=== PATIENT | female | born 1990 | race Hispanic/Latino ===

== ENCOUNTER → 2017-03-26 | Outpatient (CLI) | payer BC ==
[~2017-03-26] MED LIST: IBUP-1773 PO; Ibuprofen PO; NITR-65 PO; PREN1TAB39 PO
--- NOTE | 2017-03-26 15:02 | Diagnostic Imaging Report ---
PROCEDURE: US PELVIC (NON OB) TECHNIQUE: Multiple real-time grayscale images were obtained over the pelvis in various projections transabdominally. Indication: IUD surveillance, no complaint per patient. Comparison: None. Discussion: Transabdominal and transvaginal sonographic evaluation of the pelvis was performed. The uterus is normal in echotexture and size measuring 8.9 x 6.0 x 4.2 cm. IUD appears to be in good position within the endometrial canal. Normal endometrial thickness measuring 0.7 cm. The ovaries appear normal in echotexture and size bilaterally with normal color Doppler blood flow. The right ovary measures 2.5 x 2.7 x 2.1 cm. The left ovary measures 3.3 x 4.1 x 2.0 cm. No abnormal adnexal mass or fluid. Impression: 1. IUD in good position within the endometrial canal. Dictated by: Dictated on workstation # [id number]
== END ==
LOC: RAD 14:10
PROVIDERS: ATTEND Family Medicine
DX: Z30.431 Encounter for routine checking of intrauterine contraceptive device (principal)
CPT/HCPCS: 76856

== ENCOUNTER 2022-10-09 00:20 | Inpatient (IN) | payer BC, OTHER ==
[2022-10-09] VITALS (72 sets, daily range): BP systolic 101–146; BP diastolic 53–81
[~2022-10-09] VITALS: Ht 157.5 cm; Wt 100.9 kg
[2022-10-09] MEDS ORDERED: MINERAL OIL 30 ML UDC TOP PRN (00:30)
[2022-10-09] MEDS ORDERED: D5 LR IV SOLUTION 1,000 ML IV SCH (00:30)
[2022-10-09] MEDS ORDERED: PREN-8 PO (00:34)
[2022-10-09 01:25] LABS: BASOPHILS % (AUTO) 0 % (0-10); EOSINOPHILS # (AUTO) 0.1 10^3/uL (0.0-0.3); EOSINOPHILS % (AUTO) 1 % (0-10); HEMATOCRIT 39 % (35-52); HEMOGLOBIN 12.7 g/dL (11.5-16.0); LYMPHOCYTES # (AUTO) 2.3 10^3/uL (1.0-4.0); LYMPHOCYTES % (AUTO) 26 % (12-44); MEAN CORPUSCULAR HEMOGLOBIN 26 pg (25-34); MEAN CORPUSCULAR HGB CONC 33 g/dL (32-36); MEAN CORPUSCULAR VOLUME 80 fL (80-99); MEAN PLATELET VOLUME 10.2 fL (9.0-12.2); MONOCYTES # (AUTO) 0.6 10^3/uL (0.0-1.0); MONOCYTES % (AUTO) 7 % (0-12); NEUTROPHILS % (AUTO) 66 % (42-75); PLATELET COUNT 224 10^3/uL (130-400); WHITE BLOOD COUNT 9.1 10^3/uL (4.3-11.0)
[2022-10-09 02:20] LABS: BILIRUBIN,URINE NEGATIVE (NEGATIVE); CLARITY,URINE CLEAR; COLOR,URINE YELLOW; GLUCOSE, URINE (UA) NEGATIVE (NEGATIVE); KETONES,URINE 1+ (NEGATIVE); LEUKOCYTE ESTERASE ,URINE NEGATIVE (NEGATIVE); NITRITE,URINE NEGATIVE (NEGATIVE); PROTEIN,URINE NEGATIVE (NEGATIVE)
[2022-10-09 02:55] LABS: BACTERIA,URINE FEW /HPF; WBC,URINE RARE /HPF
[2022-10-09] MEDS ORDERED: LACTATED RINGERS 1,000 ML IV ONE ×5 (03:17→11:45)
[2022-10-09] MEDS: LACTATED RINGERS 1,000 ML IV SCH ×3 (03:19→20:05)
[2022-10-09] MEDS: OXYTOCIN PRE-MIX DRIP 500 ML IV SCH ×2 (05:24→15:30)
[2022-10-09] MEDS ORDERED: CATHETER FLUSH 10 ML SYR IV SCH ×2 (06:00→22:00)
--- NOTE | 2022-10-09 06:48 | History & Physical-OB/GYN ---
GERONIMO JEFFERSON 10/09/22 0648: OB - Chief Complaint & HPI Date/Time Date of Admission: Date of Admission: Oct 09, 2022 at 00:20 Date seen by a Provider: Oct 09, 2022 Time Seen by a Provider: 07:00 Chief Complaint/History OB-Reason for Admission/Chief: Induction of Labor Hx : 5 Hx Para: 3 Expected Date of Delivery: Oct 15, 2022 Gestational Age in Weeks: 39 Gestational Age in Days: 1 Indication for induction: medical complication (glucosuria) Allergies and Home Medications Allergies Coded Allergies: No Known Drug Allergies (Unverified , 12/15/10) Patient Home Medication List Vit W-Ca,Fe,FA(<1 mg) ( Formula) 28 Mg Iron-800 Mcg Tablet, 1 EACH PO DAILY, (Reported) Entered as Reported by: GERONIMO RUIZ on 10/09/22 003 Last Action: New Order Discontinued Medications Ibuprofen (Ibuprofen) 600 Mg Tablet, 600 MG PO Q6H PRN for PAIN Discontinued Reason: No Longer Taking Prescribed by: BHAIVN GUERRA on 08/17/16 08 Last Action: Discontinued OB - History Hx of Present Care: Yes Ultrasounds: Normal mid trimester US Obstetrical Complications: Other (Glucose in urine, failed 1hr GTT, passed 3hr GTT, fingerstick glucose WNL, weekly BPPs normal) Medical Complications: None Information Induced Hypertension: No Maternal Gestational Diabetes: No Hemorrhage: Yes Obstetrical History Hx : 5 Hx Para: 3 Hx # Term Pregnancies: 3 Number of Living Children: 3 Hx Termination: No Hx Total # of Abortions (Spona: 1 Hx Multiple Gestation: No Hx Ectopic : No Hx Stillbirth: Yes (@ 17 WEEKS) Hx Complication: Yes (ANEMIA, LOW AMNIOTIC FLUID (mild oligo; reassuring weekly BPP)) Hx Induced Hypertens: No Hx Maternal Gestational Diabet: No Hx Hemorrhage: Yes (small amount of retained membranes that required manual extraction) Delivery History Hx Dystocia: Yes (mild distocia, resolved with [place] manuever ) Hx Forceps Assisted Delivery: No Hx Vacuum Extraction Assisted: No Hx Placenta Abnormality: Yes (first delivery required manual extraction for retained membranes) Hx Distress: No Hx Large For Gestational Age I: Yes Hx Small for Gestational Age I: No Hx Section: No Hx Vaginal Delivery Post C-Sec: No Hx Blood Disorders: No Adverse Rxn to Tranfusion: No Patient Past Medical History PMH: Vitamin D deficiency Slow transit constipation Elevated cholesterol Social History/Family History Alcohol Use: Denies Use Recreational Drug Use: No Smoking Cessation: Never smoker Immunizations Influenza Vaccine Up-to-Date: No; Not Current First/Initial COVID19 Vaccine: 07/25/2021 Second COVID19 Vaccination: 08/18/2021 Hepatitis A: Yes Hepatitis B: Yes Tetanus Booster (TDap): Less than 5yrs Rubella: immune RPR/VDRL: Negative GBS Status: Negative HBsAG: Negative OB - Admission Exam Physical Exam Vitals: Vital Signs 10/09/22 10/09/22 05:03 06:25 Temp 36.2 Pulse 109 Resp 20 B/P (MAP) 112/74 (87) Pulse Ox 100 O2 Delivery Room Air Heart: Rhythm Normal Lungs: Clear Abdomen: Gravid Extremities: Normal Cervical Dilatation: 3cm Effacement: 50% Membranes: Intact Heart Rate: 120's Accelerations: Accelerations Present Decelerations: No Decelerations Short Term Variability: Present Credit Department Manager Variability: Average (6-25) Contractions on Admission: >10 Minutes Apart Frequency of Contractions: 1-2/10 minutes Labs Laboratory Tests Test 10/08/22 20:15 10/09/22 01:00 Range/Units Urine Color YELLOW Urine Clarity CLEAR Urine pH 6.0 5-9 Urine Specific [place] 1.010 L 1.016-1.022 Urine Protein NEGATIVE NEGATIVE Urine Glucose (UA) NEGATIVE NEGATIVE Urine Ketones 1+ H NEGATIVE Urine Nitrite NEGATIVE NEGATIVE Urine Bilirubin NEGATIVE NEGATIVE Urine Urobilinogen 0.2 < = 1.0 MG/DL Urine Leukocyte Esterase NEGATIVE NEGATIVE Urine RBC (Auto) NEGATIVE NEGATIVE Urine RBC NONE /HPF Urine WBC RARE /HPF Urine Squamous Epithelial Cells 2-5 /HPF Urine Crystals NONE /LPF Urine Bacteria FEW H /HPF Urine Casts NONE /LPF Urine Mucus NEGATIVE /LPF Urine Culture Indicated NO White Blood Count 9.1 4.3-11.0 10^3/uL Red Blood Count 4.82 3.80-5.11 10^6/uL Hemoglobin 12.7 11.5-16.0 g/dL Hematocrit 39 35-52 % Mean Corpuscular Volume 80 80-99 fL Mean Corpuscular Hemoglobin 26 25-34 pg Mean Corpuscular Hemoglobin Concent 33 32-36 g/dL Red Cell Distribution Width 13.9 10.0-14.5 % Platelet Count 224 130-400 10^3/uL Mean Platelet Volume 10.2 9.0-12.2 fL Immature Granulocyte % (Auto) 1 % Neutrophils (%) (Auto) 66 42-75 % Lymphocytes (%) (Auto) 26 12-44 % Monocytes (%) (Auto) 7 0-12 % Eosinophils (%) (Auto) 1 0-10 % Basophils (%) (Auto) 0 0-10 % Neutrophils # (Auto) 6.0 1.8-7.8 10^3/uL Lymphocytes # (Auto) 2.3 1.0-4.0 10^3/uL Monocytes # (Auto) 0.6 0.0-1.0 10^3/uL Eosinophils # (Auto) 0.1 0.0-0.3 10^3/uL Basophils # (Auto) 0.0 0.0-0.1 10^3/uL Immature Granulocyte # (Auto) 0.1 0.0-0.1 10^3/uL OB - Assessment/Plan/Diagnosis Assessment Assessment: induction of labor Admission Dx Contractions Admission Status: Inpatient Order (span 2 midnights) Reason for Inpatient Admission: Patient scheduled for induction this morning. Came in last night with contractions. Plan Plan: Induction Induction Method: per Pitocin Protocol Problems: (1) Encounter for induction of labor Assessment & Plan: Continuous monitoring in place. Pitocin started this morning. Patient not interested in epidural at this time. BHAVIN GUERRA MD 10/09/22 1614: Allergies and Home Medications Allergies Coded Allergies: No Known Drug Allergies (Unverified , 12/15/10) Patient Home Medication List Home Medication List Reviewed: Yes Vit W-Ca,Fe,FA(<1 mg) ( Formula) 28 Mg Iron-800 Mcg Tablet, 1 EACH PO DAILY, (Reported) Entered as Reported by: GERONIMO RUIZ on 10/09/22 0034 Last Action: New Order Discontinued Medications Ibuprofen (Ibuprofen) 600 Mg Tablet, 600 MG PO Q6H PRN for PAIN Discontinued Reason: No Longer Taking Prescribed by: BHAVIN GUERRA on 08/17/16 0818 Last Action: Discontinued Supervisory-Addendum Brief Verification & Attestation Participated in pt care: history, MDM, physical Personally performed: exam, history, MDM, supervision of care Care discussed with: Medical Student Procedures: n/a I personally saw and examined patient and did my own history which confirmed that documented by the medical student. I directed the plan of care as documented. GERONIMO JEFFERSON Oct 09, 2022 06:48 BHAVIN GUERRA MD Oct 09, 2022 16:14
[2022-10-09] MEDS ORDERED: FLU QUAD HIGH DOSE 240 MCG/0.7 ML 2022-23 (FLUZONE) IM ONE (07:15)
--- NOTE | 2022-10-09 08:53 | Labor Progress Note ---
Labor Progress Note Labor Progress Note Date Seen by Provider: Oct 09, 2022 Time Seen by Provider: 08:25 Subjective: Pt denies complaints. Objective: Cervical exam: Consistency: soft Position: anterior Presentation: vertex heart tones: 130s beats per minute, moderate variability, reactive Tocometer: 2 ctx/10 minutes Assessment/Plan: Sarah Gannon is a (32 /Para 5 / 3,Gestational Age (wks)39 here for induction of labor. AROM done at time of exam with clear fluid return. CEFM/TOCO Continue pitocin Anesthesia: None Anticipate vaginal delivery. Vitals - Labs Vital Signs - I&O Vital Signs Date Time Temp Pulse Resp B/P (MAP) Pulse Ox O2 Delivery O2 Flow Rate FiO2 10/09/22 06:25 109 112/74 (87) 10/09/22 06:10 69 122/64 (83) 10/09/22 05:55 86 121/76 (91) 10/09/22 05:40 77 119/67 (84) 10/09/22 05:03 36.2 83 20 127/73 (91) 100 Room Air 10/09/22 00:22 36.6 72 18 98 Room Air I & O 10/09/22 07:00 Intake Total 200 ml Balance 200 ml Labs Laboratory Tests 10/08/22 20:15: Urine Color YELLOW, Urine Clarity CLEAR, Urine pH 6.0, Urine Specific [place] 1.010L, Urine Protein NEGATIVE, Urine Glucose (UA) NEGATIVE, Urine Ketones 1+H, Urine Nitrite NEGATIVE, Urine Bilirubin NEGATIVE, Urine Urobilinogen 0.2, Urine Leukocyte Esterase NEGATIVE, Urine RBC (Auto) NEGATIVE, Urine RBC NONE, Urine WBC RARE, Urine Squamous Epithelial Cells 2-5, Urine Crystals NONE, Urine Bacteria FEWH, Urine Casts NONE, Urine Mucus NEGATIVE, Urine Culture Indicated NO 10/09/22 01:00: White Blood Count 9.1, Red Blood Count 4.82, Hemoglobin 12.7, Hematocrit 39, Mean Corpuscular Volume 80, Mean Corpuscular Hemoglobin 26, Mean Corpuscular Hemoglobin Concent 33, Red Cell Distribution Width 13.9, Platelet Count 224, Mean Platelet Volume 10.2, Immature Granulocyte % (Auto) 1, Neutrophils (%) (Auto) 66, Lymphocytes (%) (Auto) 26, Monocytes (%) (Auto) 7, Eosinophils (%) (Auto) 1, Basophils (%) (Auto) 0, Neutrophils # (Auto) 6.0, Lymphocytes # (Auto) 2.3, Monocytes # (Auto) 0.6, Eosinophils # (Auto) 0.1, Basophils # (Auto) 0.0, Immature Granulocyte # (Auto) 0.1 BHAVIN GUERRA MD Oct 09, 2022 08:53
[2022-10-09] MEDS ORDERED: fentaNYL 2 mcg/ml BUPIVA 0.125 100 ML ONE (10:27)
[2022-10-09] MEDS ORDERED: fentaNYL INJ 100 MCG/2 ML AMP ONE (11:08)
[2022-10-09] MEDS ORDERED: BUPIVACAINE 0.25% 30 ML (SENSORCAINE) VIAL ONE (11:08)
[2022-10-09] MEDS ORDERED: NALOXONE 0.4 MG/ML 1 ML (NARCAN) VIAL IV PRN ×2 (11:45)
[2022-10-09] MEDS ORDERED: fentaNYL 2 mcg/ml BUPIVA 0.125 100 ML EPI SCH ×2 (11:45)
[2022-10-09] MEDS ORDERED: fentaNYL INJ 100 MCG/2 ML AMP INJ ONE ×2 (11:45)
[2022-10-09] MEDS ORDERED: ONDANSETRON 4 MG/2 ML (SDV) Z0FRAN IV PRN ×2 (11:45)
[2022-10-09] MEDS ORDERED: BENZOCAINE/MENTHOL (DERMOPLAST) 56 ML CAN TP ONE (15:13)
[2022-10-09] MEDS ORDERED: IBUPROFEN 600 MG (MOTRIN) TAB PO ONE (15:13)
[2022-10-09] MEDS ORDERED: BENZOCAINE/MENTHOL (DERMOPLAST) 56 ML CAN TP PRN (15:45)
[2022-10-09] MEDS ORDERED: WITCH HAZEL(TUCKS) 40 EA JAR TOP PRN (15:45)
[2022-10-09] MEDS: IBUPROFEN 600 MG (MOTRIN) TAB PO PRN ×2 (15:56→22:41)
--- NOTE | 2022-10-09 16:04 | OB Labor & Delivery Record ---
ALIZA MANRIQUEZ 10/09/22 1604: Vag Delivery Note Vag Delivery Note Date of Delivery: 10/09/22 Preoperative Diagnosis: Sarah Gannon is a (32 y/o /Para 5 / 3, Gestational Age (wks)39with 1 day Postoperative Diagnosis: Same Surgeon: Bhavin Guerra MD Heat Treat Operator: Aliza Manriquez Anesthesia: epidural Delivery Type: vaginal delivery, induction Findings: Viable female , apgars 8,9, weight 3402 Lacerations: 1st degree midline Intact placenta with 3 vessel cord. No nuchal cord, body cord or shoulder dystocia Cytotec 800 mcg placed for hemorrhage prophylaxis Estimated Blood Loss: 450 ml Complications: None Condition: Stable Description of Procedure: The patient is a 32 year old female who presented with contractions the night before scheduled induction. She was admitted and informed consent was obtained. Her labor course was unremarkable. She progressed to complete dilatation and began to push. She was then set up for delivery. The infant's head was delivered atraumatically in the OA position. The shoulders and remainder of the 's body were then delivered without difficulty. Upon delivery, the infant was placed on mothers abomen and the mouth and nares were bulb suctioned. The cord was doubly clamped and cut and the infant was handed off to the pediatric staff. An intact placenta with 3-vessel cord delivered via [place] and there was found to be minimal bleeding.~ Vigorous fundal massage was performed and the fundus was found to be firm. IV oxytocin was given. Examination of the vagina and perineum revealed a 1st degree midline laceration repaired in the usual fashion with 3-0 vicryl suture. Following the repair, sponge, instrument and needle counts were correct. Mom and baby were both in stable condition in the labor suite. Vitals - Labs Vital Signs - I&O Vital Signs Date Time Temp Pulse Resp B/P (MAP) Pulse Ox O2 Delivery O2 Flow Rate FiO2 10/09/22 13:45 88 20 132/75 (94) 99 Room Air 10/09/22 13:30 90 20 130/70 (90) 100 Room Air 10/09/22 13:15 77 20 122/68 (86) 99 Room Air 10/09/22 13:00 72 20 123/59 (80) 99 Room Air 10/09/22 12:45 77 20 114/58 (76) 99 Room Air 10/09/22 12:30 71 20 126/67 (86) 100 Room Air 10/09/22 12:15 89 20 126/66 (86) 100 Room Air 10/09/22 12:00 36.5 78 20 121/66 (84) 100 Room Air 10/09/22 11:56 69 20 118/69 (85) 100 Room Air 10/09/22 11:53 76 20 117/65 (82) 100 Room Air 10/09/22 11:50 72 20 123/65 (84) 100 Room Air 10/09/22 11:47 77 20 116/65 (82) 100 Room Air 10/09/22 11:44 72 20 109/56 (73) 100 Room Air 10/09/22 11:41 75 20 112/57 (75) 100 Room Air 10/09/22 11:38 76 20 105/55 (72) 100 Room Air 10/09/22 11:35 86 20 114/63 (80) 100 Room Air 10/09/22 11:32 78 20 113/64 (80) 100 Room Air 10/09/22 11:29 79 20 118/66 (83) 100 Room Air 10/09/22 11:26 82 20 132/64 (86) 100 Room Air 10/09/22 11:23 104 20 110/76 (87) 100 Room Air 10/09/22 11:15 82 20 108/71 (83) 100 Room Air 10/09/22 11:00 75 20 119/74 (89) 100 Room Air 10/09/22 10:45 76 20 117/68 (84) 100 Room Air 10/09/22 10:30 85 20 130/74 (92) 100 Room Air 10/09/22 10:15 70 20 120/73 (89) 100 Room Air 10/09/22 10:00 79 20 118/74 (89) 100 Room Air 10/09/22 09:45 84 20 117/72 (87) 100 Room Air 10/09/22 09:30 97 20 120/64 (82) 100 Room Air 10/09/22 09:15 69 20 117/61 (79) 100 Room Air 10/09/22 09:00 76 20 122/73 (89) 100 Room Air 10/09/22 08:45 82 20 123/69 (87) 100 Room Air 10/09/22 08:30 83 20 118/72 (87) 100 Room Air 10/09/22 08:15 79 20 113/66 (82) 100 Room Air 10/09/22 08:00 74 20 118/65 (82) 99 Room Air 10/09/22 07:45 79 20 121/64 (83) 99 Room Air 10/09/22 07:30 36.4 109 20 107/64 (78) Room Air 10/09/22 06:25 109 112/74 (87) 10/09/22 06:10 69 122/64 (83) 10/09/22 05:55 86 121/76 (91) 10/09/22 05:40 77 119/67 (84) 10/09/22 05:03 36.2 83 20 127/73 (91) 100 Room Air 10/09/22 00:22 36.6 72 18 98 Room Air I & O 10/09/22 07:00 Intake Total 200 ml Balance 200 ml Labs Laboratory Tests 10/08/22 20:15: Urine Color YELLOW, Urine Clarity CLEAR, Urine pH 6.0, Urine Specific [place] 1.010L, Urine Protein NEGATIVE, Urine Glucose (UA) NEGATIVE, Urine Ketones 1+H, Urine Nitrite NEGATIVE, Urine Bilirubin NEGATIVE, Urine Urobilinogen 0.2, Urine Leukocyte Esterase NEGATIVE, Urine RBC (Auto) NEGATIVE, Urine RBC NONE, Urine WBC RARE, Urine Squamous Epithelial Cells 2-5, Urine Crystals NONE, Urine Bacteria FEWH, Urine Casts NONE, Urine Mucus NEGATIVE, Urine Culture Indicated NO 10/09/22 01:00: White Blood Count 9.1, Red Blood Count 4.82, Hemoglobin 12.7, Hematocrit 39, Mean Corpuscular Volume 80, Mean Corpuscular Hemoglobin 26, Mean Corpuscular Hemoglobin Concent 33, Red Cell Distribution Width 13.9, Platelet Count 224, Mean Platelet Volume 10.2, Immature Granulocyte % (Auto) 1, Neutrophils (%) (Auto) 66, Lymphocytes (%) (Auto) 26, Monocytes (%) (Auto) 7, Eosinophils (%) (Auto) 1, Basophils (%) (Auto) 0, Neutrophils # (Auto) 6.0, Lymphocytes # (Auto) 2.3, Monocytes # (Auto) 0.6, Eosinophils # (Auto) 0.1, Basophils # (Auto) 0.0, Immature Granulocyte # (Auto) 0.1 BHAVIN GUERRA MD 10/09/22 1620: Supervisory-Addendum Brief Supervisory Addendum Verification and Attestation of Medical Student E/M Service A medical student performed and documented this service in my presence. I reviewed and verified all information documented by the medical student and made modifications to such information, when appropriate. I personally performed the physical exam and medical decision making. Bhavin Guerra, Oct 09, 2022,16:20 ALIZA MANRIQUEZ Oct 09, 2022 16:04 BHAVIN GUERRA MD Oct 09, 2022 16:20
[2022-10-09] MEDS ORDERED: METHYLERGONOVINE 0.2 MG/ML (METHERGINE) AMP IM ONE (17:15)
[2022-10-09] MEDS ORDERED: CARBOPROST (HEMABATE) 250 MCG/ML AMP IM ONE (18:45)
[2022-10-09] MEDS ORDERED: TRANEXAMIC ACID INJECTION 1,000 MG in NS (IVPB) 50 ML IV ONE (18:45)
[2022-10-09] MEDS ORDERED: LACTATED RINGERS 1,000 ML IV SCH (18:45)
[2022-10-09 19:09] LABS: HEMATOCRIT 35 % (35-52); HEMOGLOBIN 11.6 g/dL (11.5-16.0); MEAN CORPUSCULAR HEMOGLOBIN 26 pg (25-34); MEAN CORPUSCULAR HGB CONC 33 g/dL (32-36); MEAN CORPUSCULAR VOLUME 80 fL (80-99); MEAN PLATELET VOLUME 10.1 fL (9.0-12.2); PLATELET COUNT 203 10^3/uL (130-400); WHITE BLOOD COUNT 12.1 10^3/uL (4.3-11.0)
[2022-10-09] MEDS ORDERED: HOLD METFORMIN - RECEIVED CONTRAST 20 ML VIAL IV SCH (19:30)
[2022-10-09] MEDS ORDERED: CATHETER FLUSH 10 ML SYR IV PRN (19:30)
[2022-10-09] MEDS ORDERED: NS 100 ML (IVPB) BAG IV ONE (19:30)
[2022-10-09] MEDS ORDERED: IOHEXOL 350 MG/ML 100 ML (OMNIPAQUE 350) VIAL IV ONE (19:30)
[2022-10-09 19:36] LABS: INR 0.9 (0.8-1.4); PROTHROMBIN TIME PATIENT 12.9 SEC (12.2-14.7)
--- NOTE | 2022-10-09 20:05 | Diagnostic Imaging Report ---
PROCEDURE: CT abdomen and pelvis with contrast. TECHNIQUE: Multiple contiguous axial images were obtained through the abdomen and pelvis after administration of intravenous contrast. Auto Exposure Controls were utilized during the CT exam to meet ALARA standards for radiation dose reduction. All CT scans use one or more of the following dose optimizing techniques: automated exposure control, MA and/or KvP adjustment based on patient size and exam type or iterative reconstruction. INDICATION: hemorrhage. FINDINGS: The heart size is normal. The lung bases are clear. The liver is normal in size and without focal lesions. Gallbladder is unremarkable. No biliary ductal dilatation. The spleen is normal. The pancreas and adrenal glands are unremarkable. The kidneys are normal in appearance. Aorta is nonaneurysmal. Bowel gas pattern is nonspecific. There is a Powell catheter in the bladder. There appears to be a large amount of residual blood products within the endometrium of the uterus. This measures up to 12 cm AP by 12 cm transverse by 12 cm craniocaudal. There may be some trace free pelvic fluid. The osseous structures are unremarkable. IMPRESSION: Large residual hematoma within the uterus with a trace amount of free pelvic fluid. Dictated by: Dictated on workstation # [id number]
--- NOTE | 2022-10-09 20:07 | Progress Note ---
Subjective Subjective/Events-last exam Called at 1710 and notified that patient had some large clots with fundal massage, blood pressure and vitals normal and no continued bleeding, fundus reported to be firm per bedside nurse. Methergine ordered and given. At 1818 received second call, recurrence of large clots, total blood loss suspected to be around 1700 ml since delivery. At that time I came to the hospital to evaluate patient. She was tearful, but denied chest pain, dizziness, shortness of breath or lightheadedness. Admitted some tingling in her legs. Second IV started, LR bolus started, mccoy catheter placed, tranexamic acid and Hemabate ordered and given. Patient placed in stirrups and detailed vaginal exam performed, see physical exam. Objective Exam Last Set of Vital Signs Vital Signs Date Time Temp Pulse Resp B/P (MAP) Pulse Ox O2 Delivery O2 Flow Rate FiO2 10/09/22 19:15 80 20 131/74 (93) Room Air 10/09/22 15:30 99 10/09/22 15:15 36.7 Capillary Refill : Less Than 3 Seconds General: Alert, No Acute Distress Heart: Regular Rate Abdomen: Other (fundus firm at umiblicus) Extremities: Other (trace edema) Neuro: Normal Speech Psych/Mental Status: Mental Status NL Other physical findings Vaginal exam revealed no vaginal lacerations, cervix examined and no cervical lacerations seen. No vaginal or vulvar hematomas palpated. Bimanual exam revealed firm fundus, some clots expressed and some small pieces with more tissue appearance, one very small piece of membrane removed. No active bleeding from uterus during or after exam. Results/Procedures Lab Laboratory Tests 10/08/22 20:15: Urine Color YELLOW, Urine Clarity CLEAR, Urine pH 6.0, Urine Specific [place] 1.010L, Urine Protein NEGATIVE, Urine Glucose (UA) NEGATIVE, Urine Ketones 1+H, Urine Nitrite NEGATIVE, Urine Bilirubin NEGATIVE, Urine Urobilinogen 0.2, Urine Leukocyte Esterase NEGATIVE, Urine RBC (Auto) NEGATIVE, Urine RBC NONE, Urine WBC RARE, Urine Squamous Epithelial Cells 2-5, Urine Crystals NONE, Urine Bacteria FEWH, Urine Casts NONE, Urine Mucus NEGATIVE, Urine Culture Indicated NO 10/09/22 01:00: White Blood Count 9.1, Red Blood Count 4.82, Hemoglobin 12.7, Hematocrit 39, Mean Corpuscular Volume 80, Mean Corpuscular Hemoglobin 26, Mean Corpuscular Hemoglobin Concent 33, Red Cell Distribution Width 13.9, Platelet Count 224, Mean Platelet Volume 10.2, Immature Granulocyte % (Auto) 1, Neutrophils (%) (Auto) 66, Lymphocytes (%) (Auto) 26, Monocytes (%) (Auto) 7, Eosinophils (%) (Auto) 1, Basophils (%) (Auto) 0, Neutrophils # (Auto) 6.0, Lymphocytes # (Auto) 2.3, Monocytes # (Auto) 0.6, Eosinophils # (Auto) 0.1, Basophils # (Auto) 0.0, Immature Granulocyte # (Auto) 0.1 10/09/22 19:00: White Blood Count 12.1H, Red Blood Count 4.39, Hemoglobin 11.6, Hematocrit 35, Mean Corpuscular Volume 80, Mean Corpuscular Hemoglobin 26, Mean Corpuscular Hemoglobin Concent 33, Red Cell Distribution Width 14.0, Platelet Count 203, Mean Platelet Volume 10.1, Prothrombin Time 12.9, INR Comment 0.9, Activated Partial Thromboplast Time 26, Fibrinogen 460 Assessment/Plan Assessment/Plan (1) hemorrhage Status: Acute Assessment & Plan: Cervix and vagina examined, no lacerations. Bimanual exam done, clot and possible small amount of tissue removed. Due to persistent large clots with fundal massage and suspected small amount of tissue expressed, contacted [employer]ation Consultant front desk associate, Dr. Haddad who came to bedside. He also examined the placenta and agreed it appeared intact with no suspicious vessels suggesting accessory lobes. He recommended STAT CT abd/pelvis for further evaluation, this was done and results are pending. STAT PT/INR, PTT, fibrinogen, CBC normal. Vital signs stable throughout and no active bleeding between episodes. After CT scan, bleeding decreased, with 135 ml expressed at return from CT. Will continue methergine and monitor closely. Qualifiers: Qualified Codes: O72.2 - Delayed and secondary hemorrhage BHAVIN GUERRA MD Oct 09, 2022 20:07
[2022-10-09] MEDS ORDERED: METHYLERGONOVINE 0.2 MG (MEHTERGINE) TAB PO ONE (20:36)
[2022-10-09] MEDS: METHYLERGONOVINE 0.2 MG (MEHTERGINE) TAB PO SCH (20:50)
[2022-10-09] MEDS: DOCUSATE SODIUM 100 MG (COLACE) CAP PO SCH (21:00)
[2022-10-10] VITALS: BP 116/65
[2022-10-10] MEDS ORDERED: SIMETHICONE 80 MG (MYLICON) CHEW ONE (04:19)
[2022-10-10 04:23] VITALS: BP 117/74
[2022-10-10] MEDS: SIMETHICONE 80 MG (MYLICON) CHEW PO SCH ×4 (04:23→17:33)
[2022-10-10] MEDS: IBUPROFEN 600 MG (MOTRIN) TAB PO PRN ×4 (04:23→23:42)
[2022-10-10] MEDS: METHYLERGONOVINE 0.2 MG (MEHTERGINE) TAB PO SCH ×2 (04:23→12:42)
[2022-10-10 06:56] LABS: BASOPHILS % (AUTO) 0 % (0-10); EOSINOPHILS % (AUTO) 0 % (0-10); HEMATOCRIT 32 % (35-52); HEMOGLOBIN 10.5 g/dL (11.5-16.0); LYMPHOCYTES # (AUTO) 1.1 10^3/uL (1.0-4.0); LYMPHOCYTES % (AUTO) 15 % (12-44); MEAN CORPUSCULAR HEMOGLOBIN 26 pg (25-34); MEAN CORPUSCULAR HGB CONC 33 g/dL (32-36); MEAN CORPUSCULAR VOLUME 79 fL (80-99); MEAN PLATELET VOLUME 10.3 fL (9.0-12.2); MONOCYTES # (AUTO) 0.6 10^3/uL (0.0-1.0); MONOCYTES % (AUTO) 7 % (0-12); NEUTROPHILS % (AUTO) 77 % (42-75); PLATELET COUNT 198 10^3/uL (130-400); WHITE BLOOD COUNT 7.8 10^3/uL (4.3-11.0)
--- NOTE | 2022-10-10 08:01 | Anesthesia-Regional Post-Op ---
Regional Patient Condition Mental Status: Alert, Oriented x3 Circulation: Same as Pre-Op Headache: Absent Sensation: Full Recovery Motor Block: Absent Post Op Complications Complications None Follow Up Care/Instructions Patient Instructions None needed. Anesthesia/Patient Condition Patient is doing well, no complaints, stable vital signs, no apparent adverse anesthesia problems. No complications reported per nursing. NII WILSON CRNA Oct 10, 2022 08:00
[2022-10-10] MEDS: DOCUSATE SODIUM 100 MG (COLACE) CAP PO SCH ×2 (08:48→22:03)
[2022-10-10] MEDS: FERROUS SULF 325 MG (IRON) TAB PO SCH ×2 (08:48→09:02)
[2022-10-10 08:50] VITALS: BP 106/57
--- NOTE | 2022-10-10 09:38 | Progress Note ---
Subjective Subjective/Events-last exam Doing well. Bleeding has slowed. Has not passed large clot. Powell out this morning. Breast feeding. Objective Exam Last Set of Vital Signs Vital Signs Date Time Temp Pulse Resp B/P (MAP) Pulse Ox O2 Delivery O2 Flow Rate FiO2 10/10/22 08:50 36.8 86 18 106/57 (73) 97 Room Air Capillary Refill : Less Than 3 Seconds I&O Intake and Output 10/10/22 00:00 Intake Total 3977 ml Output Total 1510 ml Balance 2467 ml Intake IV Total 3977 ml Blood Loss 1510 ml Blood Loss Quantification Method 450 ml 450 ml 1420 ml 135 ml 1900 ml Daily Weight Change No General: Alert, Oriented X3, Cooperative Abdomen: Soft, Other (fundus firm, 2 fingers below umbilicus) Psych/Mental Status: Mental Status NL, Mood NL Results/Procedures Lab Laboratory Tests 10/09/22 19:00: White Blood Count 12.1H, Red Blood Count 4.39, Hemoglobin 11.6, Hematocrit 35, Mean Corpuscular Volume 80, Mean Corpuscular Hemoglobin 26, Mean Corpuscular Hemoglobin Concent 33, Red Cell Distribution Width 14.0, Platelet Count 203, Mean Platelet Volume 10.1, Prothrombin Time 12.9, INR Comment 0.9, Activated Partial Thromboplast Time 26, Fibrinogen 460 10/10/22 06:30: White Blood Count 7.8, Red Blood Count 3.99, Hemoglobin 10.5L, Hematocrit 32L, Mean Corpuscular Volume 79L, Mean Corpuscular Hemoglobin 26, Mean Corpuscular Hemoglobin Concent 33, Red Cell Distribution Width 14.0, Platelet Count 198, Mean Platelet Volume 10.3, Immature Granulocyte % (Auto) 1, Neutrophils (%) (Auto) 77H, Lymphocytes (%) (Auto) 15, Monocytes (%) (Auto) 7, Eosinophils (%) (Auto) 0, Basophils (%) (Auto) 0, Neutrophils # (Auto) 6.0, Lymphocytes # (Auto) 1.1, Monocytes # (Auto) 0.6, Eosinophils # (Auto) 0.0, Basophils # (Auto) 0.0, Immature Granulocyte # (Auto) 0.1 Assessment/Plan Assessment/Plan (1) Status post vaginal delivery Assessment & Plan: s/p vaginal delivery at 39w1d Hb on admission 12.7, current 10.5 (2) hemorrhage Status: Acute Assessment & Plan: Cervix and vagina examined, no lacerations. Bimanual exam done, clot and possible small amount of tissue removed. Due to persistent large clots with fundal massage and suspected small amount of tissue expressed, contacted Spa Technician music rehabilitation therapist, Dr. Haddad who came to bedside. He also examined the placenta and agreed it appeared intact with no suspicious vessels suggesting accessory lobes. He recommended STAT CT abd/pelvis for further evaluation, this was done and results are pending. STAT PT/INR, PTT, fibrinogen, CBC normal. Vital signs stable throughout and no active bleeding between episodes. After CT scan, bleeding decreased, with 135 ml expressed at return from CT. Will continue methergine and monitor closely. 10/10: -Hb 10.5 -12x[address]; bleeding currently controlled/normal -received TXA, hemabate, Cytotec and methergine after delivery -continue monitoring, repeat lab in am Qualifiers: Qualified Codes: O72.2 - Delayed and secondary hemorrhage SUHAS GLASS DO Oct 10, 2022 09:38
[2022-10-10 12:44] VITALS: BP 96/54
[2022-10-10] MEDS ORDERED: FLU QUADRIvalent (6 months+) 60 mcg/0.5 ml 2022-23 (Fluzone) IM ONE (17:00)
[2022-10-10 17:15] VITALS: BP 102/60
[2022-10-10 23:41] VITALS: BP 115/67
[2022-10-11 05:36] VITALS: BP 112/57
[2022-10-11] MEDS: IBUPROFEN 600 MG (MOTRIN) TAB PO PRN ×2 (05:36→10:30)
[2022-10-11 06:47] LABS: BASOPHILS % (AUTO) 0 % (0-10); EOSINOPHILS # (AUTO) 0.1 10^3/uL (0.0-0.3); EOSINOPHILS % (AUTO) 1 % (0-10); HEMATOCRIT 29 % (35-52); HEMOGLOBIN 9.4 g/dL (11.5-16.0); LYMPHOCYTES # (AUTO) 1.7 10^3/uL (1.0-4.0); LYMPHOCYTES % (AUTO) 31 % (12-44); MEAN CORPUSCULAR HEMOGLOBIN 27 pg (25-34); MEAN CORPUSCULAR HGB CONC 33 g/dL (32-36); MEAN CORPUSCULAR VOLUME 82 fL (80-99); MEAN PLATELET VOLUME 10.3 fL (9.0-12.2); MONOCYTES # (AUTO) 0.5 10^3/uL (0.0-1.0); MONOCYTES % (AUTO) 9 % (0-12); NEUTROPHILS # (AUTO) 3.2 10^3/uL (1.8-7.8); NEUTROPHILS % (AUTO) 57 % (42-75); PLATELET COUNT 186 10^3/uL (130-400); WHITE BLOOD COUNT 5.6 10^3/uL (4.3-11.0)
[2022-10-11] MEDS ORDERED: DOCU100C37 PO (09:59)
[2022-10-11] MEDS ORDERED: FERR325T24 PO (09:59)
[2022-10-11] MEDS ORDERED: IBUP-844 PO (09:59)
--- NOTE | 2022-10-11 10:00 | Short Stay Summary ---
Discharge Summary Hospital Course Problems/Dx: (1) Encounter for induction of labor Hospital Course Date of Admission: Oct 09, 2022 at 00:20 Admission Diagnosis : Family Physician/Provider: Suhas Glass DO Date of Discharge: 10/11/22 Discharge Diagnosis: [ ] Hospital Course: [ ] Labs and Pending Lab Test: Laboratory Tests 10/11/22 05:50: White Blood Count 5.6, Red Blood Count 3.51L, Hemoglobin 9.4L, Hematocrit 29L, Mean Corpuscular Volume 82, Mean Corpuscular Hemoglobin 27, Mean Corpuscular Hemoglobin Concent 33, Red Cell Distribution Width 14.4, Platelet Count 186, Mean Platelet Volume 10.3, Immature Granulocyte % (Auto) 1, Neutrophils (%) (A uto) 57, Lymphocytes (%) (Auto) 31, Monocytes (%) (Auto) 9, Eosinophils (%) (Auto) 1, Basophils (%) (Auto) 0, Neutrophils # (Auto) 3.2, Lymphocytes # (Auto) 1.7, Monocytes # (Auto) 0.5, Eosinophils # (Auto) 0.1, Basophils # (Auto) 0.0, Immature Granulocyte # (Auto) 0.1 Home Meds Active Reported Formula ( Vit W-Ca,Fe,FA(<1 mg)) 28 Mg Iron-800 Mcg Tablet 1 Each PO DAILY Assessment/Pt Instructions Prescriptions for: Ibuprofen Iron Colace Follow-up with Dr. Fontana next week Discharge Instructions Discharge Diet: No Restrictions Discharge Physical Examination General Appearance: Alert, Oriented X3, Cooperative Psych/Mental Status: Mental Status NL, Mood NL Allergies: Coded Allergies: No Known Drug Allergies (Unverified , 12/15/10) Discharge Summary Date of Admission Oct 09, 2022 at 00:20 Date of Discharge Discharge Diagnosis (1) Encounter for induction of labor Assessment & Plan: Continuous monitoring in place. Pitocin started this morning. Patient not interested in epidural at this time. SUHAS GLASS DO Oct 11, 2022 10:00
[2022-10-11 10:30] VITALS: BP 105/59
[2022-10-11] MEDS: DOCUSATE SODIUM 100 MG (COLACE) CAP PO SCH (10:30)
[2022-10-11] MEDS: FERROUS SULF 325 MG (IRON) TAB PO SCH (10:30)
[2022-10-11] MEDS: SIMETHICONE 80 MG (MYLICON) CHEW PO SCH (10:31)
== END 2022-10-11 13:25 | disposition home or self-care (01) | DRG 806 ==
LOC: LDRP 00:20
PROVIDERS: ADMIT Family Medicine; ATTEND Family Medicine
PROC: 10E0XZZ Delivery of Products of Conception, External Approach (ICD-10-PCS; principal; 2022-10-09)
PROC: 0HQ9XZZ Repair Perineum Skin, External Approach (ICD-10-PCS; 2022-10-09)
DX: O70.0 First degree perineal laceration during delivery (principal); O72.1 Other immediate postpartum hemorrhage; Z37.0 Single live birth; Z3A.39 39 weeks gestation of pregnancy
CPT/HCPCS: 36415; 74177; 81000; 85025; 85027; 85384; 85610; 85730; 86780; 86850; 86900; 86901; 90686; 99212

== ENCOUNTER → 2022-10-23 | Outpatient (CLI) | payer OTHER ==
[~2022-10-23] MED LIST changes: +DOCU100C37 PO; +FERR325T24 PO; +IBUP-844 PO; +PREN-8 PO
--- NOTE | 2022-10-23 15:04 | Diagnostic Imaging Report ---
PROCEDURE: US PELVIC (NON OB) TECHNIQUE: Multiple real-time grayscale images were obtained over the pelvis in various projections transabdominally. In addition, limited pelvic Doppler was performed. INDICATION: Patient is 2 weeks with hemorrhage. Uterus is anteverted measuring 11.0 x 8.1 x 10.1 cm. Endometrium is somewhat ill-defined but appears to be significantly thickened at 5.9 cm. Endometrium is heterogeneous but no internal vascularity is seen. No myometrial mass is identified. Right ovary measures 2.9 x 1.7 x 1.7 cm and the left ovary measures 3.4 x 1.6 x 1.9 cm. There is blood flow to both ovaries. No adnexal mass or free fluid is detected. IMPRESSION: Thickened, heterogeneous endometrium without evidence of internal vascularity. This may be secondary to blood products. No definite vascularized retained product of conception is identified. Dictated by: Dictated on workstation # [id number]
== END ==
LOC: RAD 13:49
PROVIDERS: ATTEND Family Medicine
DX: O72.1 Other immediate postpartum hemorrhage (principal); R93.89 Abnormal findings on diagnostic imaging of other specified body structures
CPT/HCPCS: 76856